=== PATIENT | female | born 1965 | race African-American/Black ===

== ENCOUNTER → 2016-12-04 | Outpatient (CLI) | payer OTHER ==
[~2016-12-04] MED LIST: MOTRIN400 MG PO; NO MEDICATIONS
--- NOTE | ~2016-12-04 | MY11 ---
[facility] A Service of [facility] RADIOLOGY TEXT RESULTS PATIENT: MARVIN PONCE LOCATION: [facility] : 61 UNIT #: [id number] AGE: [address]: Christi Pavon APRN SEX: F ORDER DR: [id number] [facility] [address] [place], [place] [address] [id number] O MR#: [id number] Acc #: [id number] NAME: MARVIN PONCE : 1965 SEX: F STUDY DATE/TIME: 12/04/2016 16:20 UNIT: [facility] ROOM: STUDY DESCRIPTION: MY Mammogram Screening Dig N[place]af Attending Physician: Christi Pavon A.P.R.N. Referring Physician: Christi Pavon A.P.R.N. Ordering Physician: Christi Pavon A.P.R.N. Primary Care Physician: Christi Pavon A.P.R.N. MEDICAL IMAGING REPORT This report is preliminary unless electronic signature is present EXAM Bilateral digital screening with CAD. INDICATIONS Routine screening. No current complaints. No family history of breast cancer. COMPARISON (1)12/03/2015, 11/16/2014, 11/12/2013. FINDINGS MLO and CC digital views of each breast were obtained. The exam was reviewed with FDA-approved CAD. There has been no change. There are scattered fibroglandular densities present. IMPRESSION No change and no evidence of malignancy. Patients over the age of 40 are entered into a reminder system with target due date for the next mammogram. A result letter will also be sent to the patient. BIRADS: 1 Negative. Dictated by... Tunde Gamino M.D. THIS IS AN ELECTRONICALLY VERIFIED REPORT Tunde Gamino M.D. at 12/05/2016 1:53 PM Robert TD: 12/05/2016 10:42 JOB #: [id number] [facility] A Service of [facility] RADIOLOGY TEXT RESULTS PATIENT: MARVIN [facility]CE [id number] : 61 UNIT #: [id number] AGE: [address]: Christi Pavon APRN SEX: F ORDER DR: MEDICAL IMAGING REPORT Page 1 of 1 COPY
== END | disposition home or self-care (01) ==
LOC: CWCC 16:11
DX: Z12.31 Encounter for screening mammogram for malignant neoplasm of breast (principal)
CPT/HCPCS: G0202